=== PATIENT | female | born 1970 | race Caucasian/White ===

== ENCOUNTER 2018-10-03 05:19 | Emergency (ER) | payer OTHER ==
[2018-10-03] MEDS ORDERED: NS(*) 0.9% 1000 ML BAG 1,000 ML IV ONE ×2 (05:25)
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
[2018-10-03 05:39] LABS: PLATELET COUNT, AUTOMATED 312 K/uL (150-450)
[2018-10-03] MEDS ORDERED: IOPAMIDOL 76% 100 ML INFUS BTL 100 ML ONE (05:41)
[2018-10-03 05:47] LABS: INR 0.97
--- NOTE | 2018-10-03 05:47 | RADIOLOGY IMAGING REPORT ---
FACILITY: [facility] PATIENT NAME: Kimani Fenton : 1970 MR: [id number] V: [id number] EXAM DATE: ORDERING PHYSICIAN: MUKUL AVILA TECHNOLOGIST: Location: [facility] [place] Patient: Kimani Fenton : 1970 Visit/Account:[id number] Date of Sevice: 10/03/2018 CHEST SINGLE AP Indication: Trauma. Comparison: None available Findings: The lungs are clear. Left upper lung appears more lucent in the right upper lung which may be techniq ue related. No pneumothorax or pleural effusion. Heart size is normal. There has been prior plate and screw fixation of the left clavicle. IMPRESSION: 1. No acute cardiopulmonary process. Report Dictated By: Major Shepherd at 10/03/2018 5:40 AM Report E-Signed By: Major Shepherd at 10/03/2018 5:44 AM WSN:[id number]
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
[2018-10-03] MEDS ORDERED: HYDROMORPHONE HCL 1 MG/ML SYRINGE IVP ONE ×3 (05:50→08:45)
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
[2018-10-03 08:40] VITALS: BP 141/85
== END 2018-10-03 09:00 | disposition short-term general hospital (02) ==
LOC: EDBD 05:19 → EDSEX 05:19 → ER 05:33
DX: S12.601A Unspecified nondisplaced fracture of seventh cervical vertebra, initial encounter for closed fracture (principal); S22.029A Unspecified fracture of second thoracic vertebra, initial encounter for closed fracture; S22.42XA Multiple fractures of ribs, left side, initial encounter for closed fracture; S42.031A Displaced fracture of lateral end of right clavicle, initial encounter for closed fracture; R10.9 Unspecified abdominal pain; R20.0 Anesthesia of skin; R20.2 Paresthesia of skin; V69.9XXA Occupant (driver) (passenger) of heavy transport vehicle injured in unspecified traffic accident, initial encounter
CPT/HCPCS: 70450; 71045; 71260; 72125; 72170; 74177; 81001; 83605; 85025; 85610; 85730; 93005; 96361; 96374; 96376; 99285; C1758; J1170; J7030; Q9967; 82040; 82247; 82310; 82374; 82435; 82565; 82947; 84075; 84132; 84155; 84295; 84450; 84460; 84520

== ENCOUNTER → 2018-10-03 | Outpatient (CLI) | payer OTHER | LOC: AMB 03:32 | PROVIDERS: ATTEND Nurse Practitioner | DX: M25.571 Pain in right ankle and joints of right foot (principal); M21.961 Unspecified acquired deformity of right lower leg; S40.811A Abrasion of right upper arm, initial encounter; M25.511 Pain in right shoulder; V68.9XXA Unspecified occupant of heavy transport vehicle injured in noncollision transport accident in traffic accident, initial encounter; Y92.411 Interstate highway as the place of occurrence of the external cause | CPT/HCPCS: A0425; A0427 ==

== ENCOUNTER → 2018-10-03 | Outpatient (CLI) | payer OTHER | LOC: AMB 08:45 | PROVIDERS: ATTEND Nurse Practitioner | DX: M54.2 Cervicalgia (principal); M54.9 Dorsalgia, unspecified; V48.5XXA Car driver injured in noncollision transport accident in traffic accident, initial encounter | CPT/HCPCS: A0425; A0426 ==